=== PATIENT | male | born 1985 | race Caucasian/White ===

== ENCOUNTER 2017-01-06 07:26 | Emergency (ER) | payer MEDICAID ==
[2017-01-06 07:41] VITALS: O2SAT 96
--- NOTE | 2017-01-06 08:11 | CPEKG ---
Heart Rate: 53 RR Interval: 1132 P-R Interval: 180 QRSD Interval: 90 QT Interval: 444 QTC Interval: 417 P [place]: 72 QRS [place]: 69 T Wave [place]: 45 EKG Severity - NORMAL ECG - EKG Impression: SINUS RHYTHM Electronically Signed By: Nikita Adler 08-Jan-2017 06:07:23
[2017-01-06] MEDS ORDERED: KETOROLAC 30 MG/1 ML SDV IVP ONE (08:34)
--- NOTE | 2017-01-06 08:36 | EDPHY ---
HPI/HX/ROS/PE/MDM Narrative: CHIEF COMPLAINT: Left side trunk pain HPI: The patient is a 31 y/o male who complains of diffuse left-sided trunk pain onset several weeks ago. The pain is intermittent but has been increasing in severity since it first began. The pain initially lasted for 1 hour, but the duration of pain has also been increasing. This morning around 01:00, 7.5 hours ago, the pain became more severe. He states it is an aching pain with an intermittent stabbing pain. He has had difficulty taking a deep breath because of the pain, nausea, as well as inability to pass a bowel movement. Denies cough , vomiting, fever, diarrhea, constipation, painful urination. REVIEW OF SYSTEMS: Aside from elements discussed in the HPI, a comprehensive 10-point review of systems was reviewed and is negative. PMH: Cyclic vomiting SOCIAL HISTORY: Lives in [place] Single Nonsmoker PHYSICAL EXAM: General:Patient is alert, in no acute distress. ENT:Eyes are normal to inspection. ENT inspection normal. Neck: Normal inspection. Full range of motion. Respiratory:No respiratory distress. Breath sounds normal bilaterally. Cardiovascular: Regular rate and rhythm. Strong peripheral pulses. Normal cap refill. Abdomen: Mild LLQ tenderness to palpitation. There are no peritoneal signs. There are normal bowel sounds. Back: Normal to inspection. No tenderness to palpation. Skin: Normal color. No rash. Warm and dry. Extremities: Normal appearance. Full range of motion. Neuro: Oriented x3. Normal motor function. Normal sensory function. Portions of this note were transcribed by an ED scribe. I personally performed the history, physical exam, and medical decision making; and confirm the accuracy of the information in the transcribed note. ED Course: The patient is a 31 y/o male who presents with mild LLQ tenderness. EKG was ordered and interpreted by myself. Please see [employer] system for official reading. 0854: Lab results show an elevated Lipase, plan on abdominal Ultrasound. 1010: Ultrasound negative. 1020: Patient sitting in bed reading. Comfortable. I offered patient further workup to include CTAP, CTchest, but he declines. He believes his symptoms are due to panic attack and would like to go home. MDM: This patient presents with left sided chest and abdominal pain of unknown etiology. I considered kidney stone, splenic infarct, PE, shingles among other diagnoses, but there is no evidence for these on our workup. The patient does have a mildly elevated lipase, but he has a normal ultrasound and his pain is not epigastric. I offered further workup including CTAP but patient declines this test for now and wants to go home. - Data Points Imaging Results: Imaging Impressions Abdomen Ultrasound 01/06/17 08:54 Impression: 1. There are some tiny (3 mm range) gallbladder polyps present, however there is no evidence of cholelithiasis, cholecystitis, or bile duct dilatation. 2. Suboptimal assessment of the distal pancreatic body and tail secondary to overlying bowel gas in this patient with an elevated lipase. If there is further clinical concern, contrast-enhanced CT imaging could be considered. Findings were discussed with Charles Montalvo MD at 10:04, on 01/06/2017. Imaging: Discussed imaging studies w/ scallop binder Radiologist, I viewed and interpreted images myself Laboratory Results: Laboratory Results 01/06/17 08:17 01/06/17 08:17 01/06/17 01/06/17 01/06/17 08:55 08:17 08:17 WBC RBC Hgb Hct MCV MCH MCHC RDW Plt Count MPV Neut % (Auto) Lymph % (Auto) [place] % (Auto) Eos % (Auto) Baso % (Auto) Nucleat RBC Rel Count Absolute Neuts (auto) Absolute Lymphs (auto) Absolute Monos (auto) Absolute Eos (auto) Absolute Basos (auto) Absolute Nucleated RBC Immature Gran % Immature Gran # D-Dimer < 0.27 ug/mLFEU ug/mLFEU (0.00-0.50) Sodium 142 mEq/L mEq/L (134-144) Potassium 4.2 mEq/L mEq/L (3.5-5.2) Chloride 107 mEq/L mEq/L (97-110) Carbon Dioxide 22 mEq/l mEq/l (22-31) Anion Gap 13 mEq/L mEq/L (8-16) BUN 20 mg/dL mg/dL (7-23) Creatinine 0.9 mg/dL mg/dL (0.7-1.3) Estimated GFR > 60 Glucose 92 mg/dL mg/dL (70-100) Calcium 9.6 mg/dL mg/dL (8.5-10.4) Troponin I < 0.012 ng/mL ng/mL (0.000-0.034) Lipase 635 IU/L H IU/L (23-300) Urine Color PALE YELLOW Urine Appearance CLEAR Urine pH 6.0 (5.0-7.5) Ur Specific [place] 1.006 (1.002-1.030) Urine Protein NEGATIVE (NEGATIVE) Urine Ketones NEGATIVE (NEGATIVE) Urine Blood NEGATIVE (NEGATIVE) Urine Nitrate NEGATIVE (NEGATIVE) Urine Bilirubin NEGATIVE (NEGATIVE) Urine Urobilinogen NEGATIVE EU EU (0.2-1.0) Ur Leukocyte Esterase NEGATIVE (NEGATIVE) Urine Glucose NEGATIVE (NEGATIVE) 01/06/17 08:17 WBC 4.91 10^3/uL 10^3/uL (3.80-9.50) RBC 4.81 10^6/uL 10^6/uL (4.40-6.38) Hgb 14.9 g/dL g/dL (13.7-17.5) Hct 41.6 % % (40.0-51.0) MCV 86.5 fL fL (81.5-99.8) MCH 31.0 pg pg (27.9-34.1) MCHC 35.8 g/dL g/dL (32.4-36.7) RDW 11.9 % % (11.5-15.2) Plt Count 198 10^3/uL 10^3/uL (150-400) MPV 10.6 fL fL (8.7-11.7) Neut % (Auto) 59.5 % % (39.3-74.2) Lymph % (Auto) 32.6 % % (15.0-45.0) [place] % (Auto) 6.1 % % (4.5-13.0) Eos % (Auto) 1.2 % % (0.6-7.6) Baso % (Auto) 0.4 % % (0.3-1.7) Nucleat RBC Rel Count 0.0 % % (0.0-0.2) Absolute Neuts (auto) 2.92 10^3/uL 10^3/uL (1.70-6.50) Absolute Lymphs (auto) 1.60 10^3/uL 10^3/uL (1.00-3.00) Absolute Monos (auto) 0.30 10^3/uL 10^3/uL (0.30-0.80) Absolute Eos (auto) 0.06 10^3/uL 10^3/uL (0.03-0.40) Absolute Basos (auto) 0.02 10^3/uL 10^3/uL (0.02-0.10) Absolute Nucleated RBC 0.00 10^3/uL 10^3/uL (0-0.01) Immature Gran % 0.2 % % (0.0-1.1) Immature Gran # 0.01 10^3/uL 10^3/uL (0.00-0.10) D-Dimer Sodium Potassium Chloride Carbon Dioxide Anion Gap BUN Creatinine Estimated GFR Glucose Calcium Troponin I Lipase Urine Color Urine Appearance Urine pH Ur Specific [place] Urine Protein Urine Ketones Urine Blood Urine Nitrate Urine Bilirubin Urine Urobilinogen Ur Leukocyte Esterase Urine Glucose Medications Given: Discontinued Medications Ketorolac Tromethamine (Toradol) 30 mg IVP EDNOW ONE Stop: 01/06/17 08:35 Last Admin: 01/06/17 08:44 Dose: 30 mg General Time Seen by Provider: 01/06/17 08:08 Initial Vital Signs: Initial Vital Signs Temperature (C) 36.6 C 01/06/17 07:38 Heart Rate 64 01/06/17 07:38 Respiratory Rate 16 01/06/17 07:38 Blood Pressure 128/60 H 01/06/17 07:38 O2 Sat (%) 96 01/06/17 07:38 O2 Delivery Mode Room Air Allergies/Adverse Reactions: amoxicillin [Amoxicillin] Allergy (Mild, Verified 01/06/17 07:42) Hives haloperidol [From Haldol] Allergy (Verified 01/06/17 07:42) Home Medications: Medication Instructions Recorded Valium 05/11/15 Clonidine 01/06/17 Departure - Departure Disposition: Home, Routine, Self-Care Clinical Impression: Abdominal pain Condition: Good Instructions: Abdominal Pain (ED) Additional Instructions: Follow-up with your primary doctor within 72 hours. Return to the Emergency Department for worsening pain, fever, severe vomiting, change in character or severity of pain or other worsening of condition. Referrals: CHARLES FUCHS [Other] - As per Instructions Maged Willams MD [[facility] Primary Care Provider] - As per Instructions Report Scribed for: Charles Montalvo Report Scribed by: Maite Tellez Date of Report: 01/06/17 Time of Report: 08:28
[2017-01-06 08:40] LABS: % IMMATURE GRANULYOCYTES 0.2 % (0.0-1.1); ABSOLUTE IMMATURE GRANULOCYTES 0.01 10^3/uL (0.00-0.10); ADD DIFF? NO; ADD MORPH? NO; ADD SCAN? NO; ATYPICAL LYMPHOCYTE FLAG 0 (0-99); FRAGMENT RBC FLAG 0 (0-99); HEMATOCRIT 41.6 % (40.0-51.0); HEMOGLOBIN 14.9 g/dL (13.7-17.5); LEFT SHIFT FLG 0 (0-99); LIPEMIA HEMOLYSIS FLAG 90 (0-99); MEAN CELL HEMOGLOBIN CONCENTR. 35.8 g/dL (32.4-36.7); MEAN CELL VOLUME 86.5 fL (81.5-99.8); MEAN PLATELET VOLUME 10.6 fL (8.7-11.7); PLATELET CLUMPS FLAG 0 (0-99); PLATELET COUNT 198 10^3/uL (150-400); RED BLOOD CELL COUNT 4.81 10^6/uL (4.40-6.38); RED CELL DISTRIBUTION WIDTH 11.9 % (11.5-15.2)
[2017-01-06 08:46] LABS: ANION GAP 13 mEq/L (8-16); CALCIUM 9.6 mg/dL (8.5-10.4); CARBON DIOXIDE 22 mEq/l (22-31); CHLORIDE 107 mEq/L (97-110); CREATININE 0.9 mg/dL (0.7-1.3); GLOMERULAR FILTRATION RATE > 60; GLUCOSE 92 mg/dL (70-100); POTASSIUM 4.2 mEq/L (3.5-5.2); SODIUM 142 mEq/L (134-144)
[2017-01-06 08:58] LABS: TROPONIN I < 0.012 ng/mL (0.000-0.034)
[2017-01-06 09:08] LABS: COLOR PALE YELLOW; LEUKOCYTE ESTERASE,URINE NEGATIVE (NEGATIVE); NITRITE,URINE NEGATIVE (NEGATIVE)
[2017-01-06 10:37] VITALS: BP 116/78; PULSE 59; RESP 18; TEMP 97.5
== END 2017-01-06 10:37 | disposition home or self-care (01) ==
DX: R10.32 Left lower quadrant pain (principal)
CPT/HCPCS: 96374; J1885

== ENCOUNTER 2017-01-09 23:09 | Inpatient (IN) | payer MEDICAID ==
--- NOTE | 2017-01-09 23:43 | EDPHY ---
H & P Stated Complaint: LLQ abd pain and emesis seen wed for same symptoms HPI/ROS: HPI CHIEF COMPLAINT: Left-sided abdominal pain HISTORY OF PRESENT ILLNESS: This patient very pleasant 31-year-old male he does have significant past medical history for cyclic vomiting syndrome as well as anxiety, presents emergency room with left upper quadrant pain. Patient reports that on Wednesday he was seen here for the same complaint head evaluation thought it was more anxiety related went home. States and Wednesday he did fine today around 5 hours ago he resume with this left upper quadrant abdominal pain he describes as "pinching "he denies any chest pain or shortness of breath. Denies fever. Denies urinary symptoms. States the pain does wrap around to his left side. Located left upper quadrant. No pleuritic pain. No shortness of breath or chest pain. No fever. Did have 2 episodes of nonbilious nonbloody vomiting. Past Medical History: Cyclic vomiting syndrome, anxiety and panic attack Past Surgical History: No recent surgery however history of appendicitis appendectomy, left shoulder surgery, right wrist surgery Social History: Smokes marijuana occasionally, denies daily use of drugs alcohol or tobacco. Student. Family History: Noncontributory ROS REVIEW OF SYSTEMS: A comprehensive 10 point review of systems is otherwise negative aside from elements mentioned in the history of present illness. Exam Constitutional appears nontoxictriage nursing summary reviewed, vital signs reviewed, awake/alert. Eyes normal conjunctivae and sclera, EOMI, PERRLA. HENT normal inspection, atraumatic, moist mucus membranes, no epistaxis, neck supple/ no meningismus, no raccoon eyes. Respiratory clear to auscultation bilaterally, normal breath sounds, no respiratory distress, no wheezing. Cardiovascular rate normal, regular rhythm, no murmur, no edema, distal pulses normal. Gastrointestinal soft, mild tenderness palpation left upper quadrant , no rebound, no guarding, normal bowel sounds, no distension, no pulsatile mass. Genitourinary no CVA tenderness. Musculoskeletal no midline vertebral tenderness, full range of motion, no calf swelling, no tenderness of extremities, no meningismus, good pulses, neurovascularly intact. Skin pink, warm, & dry, no rash, skin atraumatic. Neurologic awake, alert and oriented x 3, AAOx3, moves all 4 extremities equally, motor intact, sensory intact, CN II-XII intact, normal cerebellar, normal vision, normal speech. Psychiatric normal mood/affect. Heme/Lymph/Immune no lymphadenopathy. Differential diagnosis includes but is not limited to and in no particular order : Bowel obstruction, appendicitis, gallbladder disease, diverticulitis, colitis , enteritis, perforated viscus, gastritis, GERD, esophagitis, urinary tract infection, pyelonephritis, kidney stones Medical Decision Making: Plan for this patient IV establishment with IV fluid bolus, 0.5 mg IV Dilaudid for pain control, CT scan abdomen pelvis with IV contrast to help delineate abdominal pain acute left upper quadrant, check abdominal blood work including LFTs, lipase. Re-evaluate. Re-evaluation: CT scan of the abdomen pelvis with contrast. The results of the study are this shows pericholecystic fluid with gallstones present.. The study was read by Dr. Garcia I viewed the images myself on the PACS system. 0205AM: CT scan results show gallstones and pericholecystic fluid around the gallbladder. Clinically on exam the patient does not have any right upper quadrant pain he is complaining of left upper quadrant pain. He denies any fever. However given how gallbladder looks on CT scan I will consult surgery for evaluation of this. He has had multiple episodes of nausea vomiting. LFTs and bilirubin are normal. 0213AM: A consult General surgery Dr. Gus Pal. He will come and evaluate the patient. 0408AM: Patient resting. He has agreed for admission the hospital. We did touch base with [place] as he has [place] med[place]. Dr. Pal has evaluated the patient. Plan will be for admission for abdominal pain, gallstones, ? Acute cholecystitis 0448AM: Spoke with Dr. Pal, he would like the patient admitted to the hospitalist service. Distally the patient has been given Valium here. He was office Valium for 3 days. Very anxious. Possibly going through benzo withdrawal as well. I have updated the patient he agrees to be admitted to the hospital for abdominal pain and possible acute cholecystitis. He is allergic to penicillin. He gets a rash with throat swelling. I have asked Dr. Fisher to admit the patient. At this time the patient is hemodynamically stable afebrile. Not vomiting. Mild abdominal pain no peritoneal signs. Agrees for admission. He is calm after Valium. Source: Patient - Personal History Current Tetanus/Diphtheria Vaccine: No Current Tetanus Diphtheria and Acellular Pertussis (TDAP): No - Medical/Surgical History Hx Asthma: No Hx Chronic Respiratory Disease: No Hx Diabetes: No Hx Cardiac Disease: No Hx Renal Disease: No Hx Cirrhosis: No Hx Alcoholism: No Hx HIV/AIDS: No Hx Splenectomy or Spleen Trauma: No Other PMH: concussions. anxiety. "n/v due to stress", LEFT SHOULDER SURGERY, DAMAGE TO SPINE - Social History Smoking Status: Never smoked Constitutional: Initial Vital Signs Temperature (C) 36.4 C 01/09/17 23:13 Heart Rate 83 01/09/17 23:13 Respiratory Rate 16 01/09/17 23:13 Blood Pressure 119/71 01/09/17 23:13 O2 Sat (%) 97 01/09/17 23:13 O2 Delivery Mode Room Air Allergies/Adverse Reactions: amoxicillin [Amoxicillin] Allergy (Mild, Verified 01/09/17 23:15) Hives haloperidol [From Haldol] Allergy (Verified 01/09/17 23:15) Home Medications: Medication Instructions Recorded Diazepam [Valium 5 MG (*)] 5 mg PO BID PRN 01/10/17 Herbals/Supplements -Info Only 1 ea PO DAILY 01/10/17 clonIDINE [Catapres (*)] 0.1 mg PO HS 01/10/17 oxyCODONE/APAP 5/325 [Percocet 1 - 2 tab PO Q4HRS PRN #20 tab 01/10/17 5/325 (*)] Medical Decision Making - Data Points Laboratory Results: Laboratory Results 01/09/17 23:45 01/09/17 23:45 Medications Given: Discontinued Medications Bupivacaine HCl (Sensorcaine 0.5% Vial) Confirm Administered Dose 30 ml .ROUTE .STK-MED ONE Stop: 01/10/17 09:05 Last Admin: 01/10/17 10:52 Dose: 30 ml Diazepam (Valium) 5 mg PO EDNOW ONE Stop: 01/10/17 03:34 Last Admin: 01/10/17 03:54 Dose: 5 mg Fentanyl (Sublimaze) 25 - 100 mcg IVP Q5M PRN PRN Reason: PACU, IMMEDIATE Pain control Stop: 01/10/17 11:28 Last Admin: 01/10/17 11:31 Dose: 50 mcg Hydromorphone HCl (Dilaudid) 0.5 mg IVP EDNOW ONE Stop: 01/09/17 23:50 Last Admin: 01/10/17 00:11 Dose: 0.5 mg Hydromorphone HCl (Dilaudid) 0.5 mg IVP EDNOW ONE Stop: 01/10/17 00:55 Last Admin: 01/10/17 01:02 Dose: 0.5 mg Hydromorphone HCl (Dilaudid) 1 mg IVP EDNOW ONE Stop: 01/10/17 02:07 Last Admin: 01/10/17 02:15 Dose: 1 mg Hydromorphone HCl (Dilaudid) 0.4 mg IVP Q4HRS PRN PRN Reason: Pain, Severe Unable to Take PO Stop: 01/20/17 05:39 Last Admin: 01/10/17 05:57 Dose: 0.4 mg Hydromorphone HCl (Dilaudid) 0.4 mg IVP Q2HRS PRN PRN Reason: Pain, Severe Unable to Take PO Stop: 01/20/17 05:39 Last Admin: 01/10/17 08:57 Dose: 0.4 mg Hydromorphone HCl (Dilaudid) 0.1 - 0.4 mg IVP Q10M PRN PRN Reason: PACU, PAIN Stop: 01/10/17 11:28 Last Admin: 01/10/17 12:26 Dose: 0.2 mg Sodium Chloride (Ns) 1,000 mls @ 0 mls/hr IV EDNOW ONE; Wide Open PRN Reason: Protocol Stop: 01/09/17 23:46 Last Admin: 01/10/17 00:11 Dose: 1,000 mls Ertapenem 1 gm/ Sodium (Chloride) 100 mls @ 200 mls/hr IV EDNOW ONE PRN Reason: Protocol Stop: 01/10/17 04:45 Last Admin: 01/10/17 04:41 Dose: Not Given Sodium Chloride (Ns) 1,000 mls @ 125 mls/hr IV CONT DELANEY Stop: 07/09/17 05:44 Last Admin: 01/10/17 06:01 Dose: 1,000 mls Ertapenem 1 gm/ Sodium (Chloride) 100 mls @ 200 mls/hr IV DAILY DELANEY PRN Reason: Protocol Stop: 02/09/17 08:59 Last Admin: 01/10/17 08:06 Dose: 100 mls Lorazepam (Ativan Injection) 0.5 mg IV ONCE ONE Stop: 01/10/17 12:16 Last Admin: 01/10/17 12:18 Dose: 0.5 mg Oxycodone/Acetaminophen (Percocet 5/325) 1 - 2 tab PO Q4HRS PRN PRN Reason: Pain, Severe Able to Take PO Stop: 01/20/17 11:08 Last Admin: 01/10/17 19:16 Dose: 2 tab Departure - Departure Disposition: [facility] Inpatient Acute Clinical Impression: Cholecystitis Abdominal pain Qualifiers: Abdominal location: epigastric Qualified Code(s): R10.13 - Epigastric pain Gallstone Qualifiers: Cholecystitis presence: with cholecystitis Cholecystitis acuity: acute Biliary obstruction: without biliary obstruction Qualified Code(s): K80.00 - Calculus of gallbladder with acute cholecystitis without obstruction Condition: Good
[2017-01-09] MEDS ORDERED: NS 1,000 ML IV ONE (23:45)
[2017-01-09] MEDS ORDERED: HYDROmorphONE/DILAUDID 1 MG/ML INJ IVP ONE (23:49)
[2017-01-10] MEDS ORDERED: IOPAMIDOL (ISOVUE-300) 100 ML BTL ONE (00:09)
[2017-01-10 00:18] LABS: % IMMATURE GRANULYOCYTES 0.3 % (0.0-1.1); ABSOLUTE IMMATURE GRANULOCYTES 0.03 10^3/uL (0.00-0.10); ADD DIFF? NO; ADD MORPH? NO; ADD SCAN? NO; ATYPICAL LYMPHOCYTE FLAG 0 (0-99); FRAGMENT RBC FLAG 0 (0-99); HEMATOCRIT 38.7 % (40.0-51.0); HEMOGLOBIN 14.2 g/dL (13.7-17.5); LEFT SHIFT FLG 0 (0-99); LIPEMIA HEMOLYSIS FLAG 90 (0-99); MEAN CELL HEMOGLOBIN CONCENTR. 36.7 g/dL (32.4-36.7); MEAN CELL VOLUME 84.5 fL (81.5-99.8); MEAN PLATELET VOLUME 10.7 fL (8.7-11.7); PLATELET CLUMPS FLAG 20 (0-99); PLATELET COUNT 195 10^3/uL (150-400); RED BLOOD CELL COUNT 4.58 10^6/uL (4.40-6.38); RED CELL DISTRIBUTION WIDTH 11.9 % (11.5-15.2)
[2017-01-10] MEDS ORDERED: HYDROmorphONE/DILAUDID 1 MG/ML INJ IVP ONE ×2 (00:54→02:06)
[2017-01-10 00:58] LABS: ALANINE AMINOTRANSFERASE 33 IU/L (21-72); ALBUMIN 4.4 g/dL (3.5-5.0); ALKALINE PHOSPHATASE 35 IU/L (38-126); ANION GAP 15 mEq/L (8-16); ASPARTATE AMINOTRANSFERASE 21 IU/L (17-59); BILIRUBIN,TOTAL 0.8 mg/dL (0.1-1.4); BILIRUBIN-CONJUGATED 0.2 mg/dL (0.0-0.5); BILIRUBIN-UNCONJUGATED 0.6 mg/dL (0.0-1.1); CALCIUM 10.1 mg/dL (8.5-10.4); CARBON DIOXIDE 20 mEq/l (22-31); CHLORIDE 104 mEq/L (97-110); CREATININE 1.1 mg/dL (0.7-1.3); GLOMERULAR FILTRATION RATE > 60; GLUCOSE 88 mg/dL (70-100); POTASSIUM 3.7 mEq/L (3.5-5.2); SODIUM 139 mEq/L (134-144); TOTAL PROTEIN 6.9 g/dL (6.3-8.2)
--- NOTE | 2017-01-10 03:14 | PDCONSULT ---
Literacy Education Professor Note: CC: Abd pain HPI 31 y/o male with 3 day history of LUQ pain, N/V. He was seen in the ED on Wednesday and had a mildly elevated lipase (635). An ultrasound showed a few small gallbladder polyps and he was discharged home. He returns tonight with worsening pain and has vomited twice. He denies fever, jaundice. CT this evening shows several 2-3 mm calcified gallstones, with one appearing to be impacted in the neck with associated pericholecystic fluid. His pancreas appears normal and his lipase/wbc are normal as are his liver enzymes. He is requesting Valium for anxiety. PMH: surgery: appendectomy, left shoulder surgery x 2 all: amoxicillin, haldol no tobacco, uses marijuana Etoh: SH: student/lives in [place] FH: [place] ROS: denies fever, chills, jaundice reports mild constipation PE: T 36.4 BP 138/69 P 69 R 20 Anxious young man in NAD HEENT: no scleral icterus, no adenopathy Lungs: CVS: Abd: soft, +BS, mild tenderness RUQ to deep palpation, no HSM, no LUQ tenderness , no hernia CT reviewed: shows Ca++ gallstones with one 2-3 mm stone impacted in the infundibulum/no CBD dilatation/pancreas unremarkable surgical clips from appendectomy IMP: mild cholecystitis, secondary to cholelithiasis and cystic duct obstruction recent LUQ pain and mild elevation of lipase worrisome for choledocholithiasis REC: I recommended laparoscopic cholecystectomy. He is reluctant to proceed. I informed him that he could have a second opinion if he would like. I spent 60 minutes in direct consultation greater than 50% of that time in educating the patient about the pathophysiology of the hepatobiliary system. Jessie Pal MD, FACS
[2017-01-10] MEDS ORDERED: DIAZEPAM 5 MG TAB PO ONE (03:33)
[2017-01-10] MEDS ORDERED: ERTAPENEM 1 GM in NS 100 ML IV ONE (04:16)
[2017-01-10] MEDS ORDERED: ONDANSETRON 4 MG/2 ML VIAL IVP PRN ×2 (05:39→10:28)
[2017-01-10] MEDS ORDERED: ACETAMINOPHEN 325 MG TAB PO PRN (05:39)
[2017-01-10] MEDS ORDERED: ONDANSETRON DISINTEGRATING 4 MG TAB PO PRN (05:39)
[2017-01-10] MEDS ORDERED: HYDROmorphONE/DILAUDID 1 MG/ML INJ IVP PRN ×2 (05:40→08:15)
[2017-01-10] MEDS ORDERED: NS 1,000 ML IV SCH (05:45)
--- NOTE | 2017-01-10 07:15 | GHP ---
[f rep st] HISTORY AND PHYSICAL DATE OF ADMISSION: 01/10/2017 CHIEF COMPLAINT: Acute cholecystitis. HISTORY OF PRESENT ILLNESS: A 31-year-old male, history of anxiety, cyclic vomiting syndrome, who presented to the ER today with left upper quadrant pain. He was here in the emergency room on Wednesday for the same complaint, thought it was more anxiety related, thus went home. Ultrasound then showed tiny gallbladder polyps, but no evidence of stones. Pain initially started a week and a half ago in his left upper quadrant, felt sharp. He was doing well and Wednesday and then after dinner last night developed increased pain. He had nausea with 2 episodes of vomiting. Denies fevers, chills, or sweats. No diarrhea. REVIEW OF SYSTEMS: I completed a 10-point review of systems, negative except as noted in HPI. PAST MEDICAL HISTORY: Cyclic vomiting syndrome, anxiety and panic attack. PAST SURGICAL HISTORY: Appendectomy, left shoulder surgery, right wrist surgery x2. SOCIAL HISTORY: [employer] student. Smokes marijuana occasionally. Occasional alcohol. No tobacco. FAMILY HISTORY: No gallstones or hyperlipidemia. MEDICATIONS: Valium p.r.n., clonidine. ALLERGIES: Amoxicillin, Haldol. PHYSICAL EXAMINATION: VITAL SIGNS: Temperature 36.6, blood pressure 127/71, heart rate in the 70s, respirations 15, 94% on room air. GENERAL: The patient is lying in bed, no acute distress. HEENT: PERRLA. EOMI. Oropharynx clear. CV: Regular rate and rhythm. No murmurs, gallops, rubs. LUNGS: Clear to auscultation bilaterally. ABDOMEN: Soft, nondistended, minimal left upper quadrant tenderness. Positive bowel sounds. : No Ivan. MUSCULOSKELETAL: 5/5 upper and lower extremity strength. NEURO: 2 through 12 intact. PSYCH: Alert and oriented x3. LABORATORY DATA: WBC is 8, hemoglobin 14, hematocrit 38, platelets are 195. Sodium 139, potassium 3.7, chloride 104, carbon dioxide 20, creatinine 1.1, glucose 88, calcium 10.1, total bilirubin 0.8, AST 21, ALT 33, alkaline phosphatase 35, total protein 6.9, lipase 67 (previously 635 on 01/06) IMAGING: CT abdomen: Acute cholecystitis and cholelithiasis with pericholecystic fluid. ASSESSMENT/PLAN: 1. Acute cholecystitis: Dr. Pal evaluated patient and recommended surgery. He is made n.p.o., IV fluids. Treat with ertapenem, with penicillin allergy. 2. Acute abdominal pain: Due to #1 p.r.n. IV Dilaudid. 3. Anxiety: Continue home medications. 4. Marijuana use. Counseled on cessation. 5. Diet: N.p.o., IV fluids. 6. Deep venous thrombosis prophylaxis, low risk. DISPOSITION: Patient warrants inpatient admission given acute cholecystitis requiring surgical intervention. /[id number]/MODL MTDD
[2017-01-10 07:35] LABS: HEMATOCRIT 36.7 % (40.0-51.0); HEMOGLOBIN 13.3 g/dL (13.7-17.5); MEAN CELL HEMOGLOBIN CONCENTR. 36.2 g/dL (32.4-36.7); MEAN CELL VOLUME 85.5 fL (81.5-99.8); RED BLOOD CELL COUNT 4.29 10^6/uL (4.40-6.38)
--- NOTE | 2017-01-10 08:17 | SOAPPROG ---
SOAP Progress Note Assessment/Plan: Assessment: 31 yo with cholelithiasis and pericholecystic fluid on CT We will proceed with laparoscopic cholecystectomy. The risks and benefits including but not limited to stroke, heart attack, , blood clots, infection , bleeding, damage to surrounding structures such as the bowel or common bile duct were discussed. He had his questions answered to his satisfaction. He signed the informed consent. He is on Invanz. S: Pain improved from last night. O: General: Pleasant, well-nourished and well-groomed man HENT: Normocephalic, no gross hearing deficits, mucous membranes moist, pupils equal and round, no scleral icterus Lungs: Clear to auscultation bilaterally, No increased work of breathing Cardiac: Regular rate, no peripheral edema Abdomen: Bowel sounds present, soft and nontender. Skin: Warm and dry. MSK: Normal gait and normal nails Psych: Mood and affect normal Neuro: Grossly intact Plan: 01/10/17 08:16 Objective: Vital Signs Temp Pulse Resp BP Pulse Ox 36.8 C 76 18 109/65 96 01/10/17 07:49 01/10/17 07:49 01/10/17 07:49 01/10/17 07:49 01/10/17 07:49 Laboratory Results 01/10/17 07:27 01/09/17 01/10/17 01/11/17 05:59 05:59 05:59 Intake Total 1000 Balance 1000 ICD10 Worksheet Patient Problems: Problems Problem Status Onset Abdominal pain Acute Cholecystitis Acute Gallstone Acute
[2017-01-10] MEDS ORDERED: ERTAPENEM 1 GM in NS 100 ML IV SCH (09:00)
[2017-01-10] MEDS ORDERED: BUPIVACAINE 0.5% 30 ML SDV ONE (09:04)
--- NOTE | 2017-01-10 10:00 | ASMTCMCOM ---
CM Note CM Note Notes: 31 yo male admitted for abdominal pain, cholecystitis. Patient has a Hx of anxiety, panic attacks. Lives with parents. Case Management doesn't anticipate that patient will have any discharge needs. Date Signed: 01/10/2017 10:00 AM Electronically Signed By:Philomena Grimes LCSW
[2017-01-10] MEDS ORDERED: PROPOFOL 200 MG/20 ML VIAL ONE (10:07)
[2017-01-10] MEDS ORDERED: fentaNYL 100 MCG/2 ML INJ ONE ×3 (10:07→11:19)
[2017-01-10] MEDS ORDERED: DEXAMETHASONE 4 MG/ML VIAL ONE (10:09)
[2017-01-10] MEDS ORDERED: ONDANSETRON 4 MG/2 ML VIAL ONE ×2 (10:09→11:17)
[2017-01-10] MEDS ORDERED: LIDOCAINE 2% 5 ML SDV ONE (10:09)
[2017-01-10] MEDS ORDERED: ROCURONIUM 50 MG/5 ML VIAL ONE (10:09)
[2017-01-10] MEDS ORDERED: RANITIDINE 50 MG/2 ML VIAL ONE (10:09)
[2017-01-10] MEDS ORDERED: OXYCODONE/APAP 5/325 TAB PO PRN (10:28)
[2017-01-10] MEDS ORDERED: NALOXONE HCL 0.4 MG/ML INJ IVP PRN (10:28)
[2017-01-10] MEDS ORDERED: ALBUTEROL 3 ML DEYVIAL IH PRN (10:28)
--- NOTE | 2017-01-10 10:30 | PDANEPAE ---
ANE History of Present Illness Ozzy Headley MIAN Past Medical History - Pulmonary History Hx Oxygen in Use at Home: No Hx Sleep Apnea: No Sleep Apnea Screening Result - Last Documented: Negative - Endocrine History Hx Diabetes: No - Chronic Pain History Chronic Pain: Yes ANE Review of Systems Review of Systems: ANE Patient History - Allergies Allergies/Adverse Reactions: amoxicillin [Amoxicillin] Allergy (Mild, Verified 01/09/17 23:15) Hives haloperidol [From Haldol] Allergy (Verified 01/09/17 23:15) - Home Medications Home Medications: Valium 05/11/15 [Last Taken Unknown] Clonidine 01/06/17 [Last Taken Unknown] - NPO status NPO Since - Liquids (Date): 01/09/17 NPO Since - Liquids (Time): 11:00 NPO Since - Solids (Date): 01/09/17 NPO Since - Solids (Time): 11:00 - Smoking Hx Smoking Status: Never smoked MIAN Labs/Vital Signs - Labs Result Diagrams: 01/10/17 07:27 01/09/17 23:45 - Vital Signs Blood Pressure: 109/65 Heart Rate: 76 Respiratory Rate: 18 O2 Sat (%): 96 Height: 175.26 cm Weight: 74.843 kg ANE Physical Exam - Airway Neck exam: FROM Mallampati Score: Class 2 Mouth exam: normal dental/mouth exam - Pulmonary Pulmonary: clear to auscultation - Cardiovascular Cardiovascular: regular rate and rhythym - ASA Status ASA Status: I, E ANE Anesthesia Plan Anesthesia Plan: general endotracheal anesthesia
[2017-01-10] MEDS ORDERED: SUGAMMADEX SODIUM 200 MG/2 ML VIAL IVP ONE (11:00)
--- NOTE | 2017-01-10 11:11 | POSTOPPROG ---
Post Op Note Date of Operation: 01/10/17 Surgeon: Ena Yates Anesthesiologist: pb Anesthesia: GET(General Endotracheal) Pre-op Diagnosis: acute calculous cholecystitis Post-op Diagnosis: same Indication: 31 yo with cholecystitis Procedure: lap arvin Findings: inflamed gb with stones Inf/Abcess present in the surg proc area at time of surgery?: No Depth: Superfical (Skin SQ) EBL: Minimal Specimen(s): gallbladder
--- NOTE | 2017-01-10 11:16 | POSTANESTH ---
Post Anesthetic Evaluation Cardiovascular Status: Normal, Stable Respiratory Status: Normal, Stable Level of Consciousness/Mental Status: Can Participate in Eval, Alert and Oriented Pain Control: Adequate, Prn Tx Ordered Nausea/Vomiting Control: Inadeq, Add Tx Reqired Complications Possibly Related to Anesthesia: None Noted
[2017-01-10] MEDS ORDERED: HYDROmorphONE/DILAUDID 1 MG/ML INJ ONE ×2 (11:19→11:49)
[2017-01-10] MEDS: fentaNYL 100 MCG/2 ML INJ IVP PRN ×2 (11:23→11:31)
[2017-01-10] MEDS: HYDROmorphONE/DILAUDID 1 MG/ML INJ IVP PRN ×6 (11:24→12:26)
[2017-01-10] MEDS ORDERED: LORazepam 2 MG/ML INJ ONE (11:50)
[2017-01-10] MEDS ORDERED: LORazepam 2 MG/ML INJ IV ONE (12:15)
[2017-01-10] MEDS: OXYCODONE/APAP 5/325 TAB PO PRN ×3 (15:23→19:16)
[2017-01-10 15:39] VITALS: BP 135/68; PULSE 66; RESP 14; TEMP 97.9; O2SAT 96
--- NOTE | 2017-01-10 18:51 | GOP ---
[f rep st] OPERATIVE REPORT DATE OF OPERATION: 01/10/2017 SURGEON: Ena Yates MD ANESTHESIA: General ANESTHESIOLOGIST: Mason Lopes DO PREOPERATIVE DIAGNOSIS: Acute calculous cholecystitis. POSTOPERATIVE DIAGNOSIS: Acute calculous cholecystitis. PROCEDURE PERFORMED: Laparoscopic cholecystectomy. FINDINGS: Inflammation by the gallbladder and stones milked from the cystic duct. SPECIMENS: Gallbladder. ESTIMATED BLOOD LOSS: 15 cc. INDICATIONS: The patient is a 31-year-old man who presented with abdominal pain. CT scan showed per i-cholecystic fluid and stones. DESCRIPTION OF PROCEDURE: The patient was brought into the operating room, placed supine on the tabl e, and general anesthesia was administered. His abdomen was prepped and draped in the usual sterile fashion. I infiltrated all sites with 0.5% Marcaine prior to making incisions; I used a total of 30 cc throughout the case. I made an incision at his umbilicus. I elevated it and inserted the Veress needle. It passed the hanging drop test. His abdomen insufflated easily to a pressure of 15 mmHg. I placed a 5 mm trocar with a camera at this site. Under direct vision, I placed a 10 mm subxiphoid trocar and two 5 mm trocars along the right costal margin. I lifted his gallbladder cephalad and lat erally to expose the triangle of Calot. There was inflammation in this area. I performed blunt diss ection so that I could skeletonize the cystic artery and cystic duct, so that they were the only 2 st ructures directly entering the gallbladder. I milked some stones up from the cystic duct. I singly clipped it toward the gallbladder, doubly clipped it distally, and transected each with scissors. Th e clip was just around the cystic duct, and so I also placed an Endoloop around it. I removed the ga llbladder from the gallbladder fossa with electrocautery. I placed it in an EndoCatch bag. It was r etrieved via the 10 mm trocar. I inspected the abdomen for hemostasis, which was achieved. Suction irrigation was performed. I removed the ports under direct vision and allowed the abdomen to desuffl ate. The fascia at the 10 mm trocar site was closed with 0 Vicryl, skin closed with 4-0 Monocryl, an d Dermabond applied. He was awakened in the operating room, extubated, and transferred to PACU in st able condition. /[id number]/MODL
[2017-01-11] MEDS ORDERED: ERTAPENEM 1 GM in NS 100 ML IV SCH (07:30)
--- NOTE | 2017-01-11 10:45 | ASDISCHSUM ---
Discharge Information Plan Status:Home with No Needs Medically Cleared to Leave: Discharge Date:01/10/2017 07:40 PM CM D/C Disposition:Home, Routine, Self-Care ADT D/C Disposition:Home, Routine, Self-Care Projected Discharge Date:01/10/2017 07:40 PM Transportation at D/C: Discharge Delay Reason: Follow-Up Date:01/10/2017 07:40 PM Discharge Slot: Final Diagnosis: Placement Information Patient Contact Information Contact Name:KANE Relationship:Father Address:[address] City:[place] Alternate Phone: State/Zip Code:[place] [address] Email: Financial Information Financial Class: Primary Plan Desc:MEDICAID [facility] Primary Plan Number:[id number] Secondary Plan Desc: Secondary Plan Number: Assessment Information [facility] CM Progress Note CM Note CM Note Notes: 31 yo male admitted for abdominal pain, cholecystitis. Patient has a Hx of anxiety, panic attacks. Lives with parents. Case Management doesn't anticipate that patient will have any discharge needs. Date Signed: 01/10/2017 10:00 AM Electronically Signed By:Philomena Grimes LCSW Intervention Information
== END 2017-01-10 19:40 | disposition home or self-care (01) | DRG 418 ==
LOC: F3N 01-10 05:01
PROVIDERS: ADMIT Internal Medicine; ATTEND Internal Medicine
PROC: 0FT44ZZ Resection of Gallbladder, Percutaneous Endoscopic Approach (ICD-10-PCS; principal; 2017-01-10 09:00)
DX: K80.36 Calculus of bile duct with acute and chronic cholangitis without obstruction (principal); F41.9 Anxiety disorder, unspecified; F12.90 Cannabis use, unspecified, uncomplicated
CPT/HCPCS: 96374; J1100; J1170; J1335; J2060; J2405; J2704; J2780; J3010; Q9967

== ENCOUNTER 2017-02-26 11:46 | Emergency (ER) | payer MEDICAID ==
[2017-02-26] MEDS ORDERED: METOCLOPRAMIDE 10 MG/2 ML VIAL IVP ONE ×2 (12:32)
[2017-02-26] MEDS ORDERED: KETAMINE 100 MG/10 ML SYR IVP ONE ×2 (12:33)
[2017-02-26 12:35] LABS: PLATELET COUNT 217 10^3/uL (150-400)
--- NOTE | 2017-02-26 12:37 | EDPHY ---
H & P Time Seen by Provider: 02/26/17 12:22 HPI/ROS: CHIEF COMPLAINT: Right upper quadrant pain, vomiting HISTORY OF PRESENT ILLNESS: 31-year-old male status post cholecystectomy presents with right upper quadrant pain and vomiting. 6 weeks ago, he had a cholecystectomy for cholelithiasis. He has been doing well until last evening. He ate salmon for dinner and then had gradually increasing onset of upper abdominal discomfort, associated with vomiting. The abdominal discomfort is severe and radiates to the left scapular area. Associated with multiple episodes of vomiting. The onset of symptoms was similar to prior episodes of cyclic vomiting, but pain is different from his usual cyclic vomiting syndrome symptoms. REVIEW OF SYSTEMS: Constitutional: No fever, no chills Eyes: No visual changes ENT: No sore throat Respiratory: No cough, no shortness of breath Cardiac: No chest pain Genitourinary: No hematuria, no dysuria Musculoskeletal: No leg pain or swelling Skin: No rash Neurological: No headache, no weakness Psychiatric: No depression Past Medical/Surgical History: Cholecystectomy Appendectomy Social History: No recent alcohol, no drug use Smoking Status: Never smoked Physical Exam: General Appearance: Alert, pleasant, pale appearing Eyes: Pupils equal and round, no conjunctival pallor or injection ENT, Mouth: Mucous membranes moist Neck: Normal inspection Respiratory: Lungs are clear to auscultation Cardiovascular: Regular rate and rhythm Gastrointestinal: abdomen is soft, slight right upper quadrant tenderness, no peritoneal signs Back: No tenderness in the left periscapular area Neurological: A&O, nonfocal, normal gait Skin: Warm and dry, no rash Extremities: Nontender, no pedal edema Psychiatric: Mood and affect normal Constitutional: Initial Vital Signs Temperature (C) 36.6 C 02/26/17 11:54 Heart Rate 66 02/26/17 11:54 Respiratory Rate 19 02/26/17 11:54 Blood Pressure 118/72 02/26/17 11:54 O2 Sat (%) 100 02/26/17 11:54 O2 Delivery Mode Room Air Allergies/Adverse Reactions: amoxicillin [Amoxicillin] Allergy (Mild, Verified 02/26/17 11:53) Hives haloperidol [From Haldol] Allergy (Verified 02/26/17 11:53) Home Medications: Medication Instructions Recorded Diazepam [Valium 5 MG (*)] 5 mg PO BID PRN 01/10/17 clonIDINE [Catapres (*)] 0.1 mg PO HS 01/10/17 Ondansetron Odt [Zofran Odt 4 mg 4 mg PO Q4 PRN #6 tab 02/26/17 (*)] Medical Decision Making ED Course/Re-evaluation: This patient presents with abdominal pain and vomiting. His abdominal exam is benign and I do not suspect a postoperative abscess or other complication. I will treat his symptoms and observe him in the emergency department. Reglan, Benadryl and ketamine IV given. IV normal saline 2 L. 2:00 p.m.-feels much better. Abdominal pain has resolved. He continues to have slight nausea, but has not vomited. Abdominal exam is benign. If he is able to tolerate oral fluids, I will discharge him home. He will follow up with his primary care physician in the office. 2:45 p.m.-tolerating oral fluids well. No recurrent nausea or abdominal pain. Abdominal exam remains benign. Abdominal pain precautions given. Differential Diagnosis: Differential diagnosis includes though it is not limited to appendicitis, cholecystitis, diverticulitis, pyelonephritis, bowel perforation, small bowel obstruction. - Data Points Laboratory Results: Laboratory Results 02/26/17 12:05 02/26/17 12:05 02/26/17 02/26/17 12:05 12:05 WBC 6.99 10^3/uL 10^3/uL (3.80-9.50) RBC 5.16 10^6/uL 10^6/uL (4.40-6.38) Hgb 16.2 g/dL g/dL (13.7-17.5) Hct 43.5 % % (40.0-51.0) MCV 84.3 fL fL (81.5-99.8) MCH 31.4 pg pg (27.9-34.1) MCHC 37.2 g/dL H g/dL (32.4-36.7) RDW 13.0 % % (11.5-15.2) Plt Count 217 10^3/uL 10^3/uL (150-400) MPV 10.9 fL fL (8.7-11.7) Neut % (Auto) 77.4 % H % (39.3-74.2) Lymph % (Auto) 17.5 % % (15.0-45.0) [place] % (Auto) 4.6 % % (4.5-13.0) Eos % (Auto) 0.1 % L % (0.6-7.6) Baso % (Auto) 0.3 % % (0.3-1.7) Nucleat RBC Rel Count 0.0 % % (0.0-0.2) Absolute Neuts (auto) 5.41 10^3/uL 10^3/uL (1.70-6.50) Absolute Lymphs (auto) 1.22 10^3/uL 10^3/uL (1.00-3.00) Absolute Monos (auto) 0.32 10^3/uL 10^3/uL (0.30-0.80) Absolute Eos (auto) 0.01 10^3/uL L 10^3/uL (0.03-0.40) Absolute Basos (auto) 0.02 10^3/uL 10^3/uL (0.02-0.10) Absolute Nucleated RBC 0.00 10^3/uL 10^3/uL (0-0.01) Immature Gran % 0.1 % % (0.0-1.1) Immature Gran # 0.01 10^3/uL 10^3/uL (0.00-0.10) Sodium 140 mEq/L mEq/L (134-144) Potassium 4.0 mEq/L mEq/L (3.5-5.2) Chloride 105 mEq/L mEq/L (97-110) Carbon Dioxide 17 mEq/l L mEq/l (22-31) Anion Gap 18 mEq/L H mEq/L (8-16) BUN 14 mg/dL mg/dL (7-23) Creatinine 0.9 mg/dL mg/dL (0.7-1.3) Estimated GFR > 60 Glucose 94 mg/dL mg/dL (70-100) Calcium 10.5 mg/dL H mg/dL (8.5-10.4) Total Bilirubin 1.2 mg/dL mg/dL (0.1-1.4) Conjugated Bilirubin 0.3 mg/dL mg/dL (0.0-0.5) Unconjugated Bilirubin 0.9 mg/dL mg/dL (0.0-1.1) AST 21 IU/L IU/L (17-59) ALT 37 IU/L IU/L (21-72) Alkaline Phosphatase 50 IU/L IU/L (38-126) Total Protein 7.5 g/dL g/dL (6.3-8.2) Albumin 5.3 g/dL H g/dL (3.5-5.0) Lipase 82 IU/L IU/L (23-300) Medications Given: Discontinued Medications Diphenhydramine HCl (Benadryl Injection) 25 mg IVP EDNOW ONE Stop: 02/26/17 12:33 Last Admin: 02/26/17 12:46 Dose: 25 mg Sodium Chloride (Ns) 1,000 mls @ 0 mls/hr IV ONCE ONE; Wide Open PRN Reason: Protocol Stop: 02/26/17 12:43 Last Admin: 02/26/17 12:47 Dose: 1,000 mls Ketamine HCl (Ketamine) 13.6 mg 0.2 mg/kg (13.6 mg) IVP EDNOW ONE Stop: 02/26/17 12:34 Last Admin: 02/26/17 12:45 Dose: 13.6 mg Metoclopramide HCl (Reglan Injection) 10 mg IVP EDNOW ONE Stop: 02/26/17 12:33 Last Admin: 02/26/17 12:47 Dose: 10 mg Departure - Departure Disposition: Home, Routine, Self-Care Clinical Impression: Abdominal pain Qualifiers: Abdominal location: generalized Qualified Code(s): R10.84 - Generalized abdominal pain Condition: Good Instructions: Acute Abdominal Pain (ED) Additional Instructions: Clear liquids for 24 hours. Sometimes we are unable to diagnose an obvious cause of abdominal pain in the Emergency Department. Based upon our evaluation today, we see no obvious explanation for your pain. Because more serious conditions can be difficult to diagnose early in the course of their presentation, we ask that you return to the Emergency Department in 8-12 hours for a recheck if you are still having pain. This is necessary to exclude the development of a more serious condition such as appendicitis or other intra-abdominal emergency. In the event your pain markedly increases before that time or you develop intractable vomiting or fever return to the Emergency Department immediately. Referrals: Dez Perez MD [Medical Doctor] - 1 day, if not improved Prescriptions: Ondansetron Odt [Zofran Odt 4 mg (*)] 4 mg PO Q4 PRN #6 tab PRN Reason: Nausea
[2017-02-26] MEDS ORDERED: NS 1,000 ML IV ONE ×2 (12:42)
[2017-02-26 14:43] VITALS: O2SAT 95
[2017-02-26 14:59] VITALS: BP 105/64; PULSE 70; RESP 14; TEMP 97.7
== END 2017-02-26 14:58 | disposition home or self-care (01) ==
PROC: 3E0337Z Introduction of Electrolytic and Water Balance Substance into Peripheral Vein, Percutaneous Approach (ICD-10-PCS; principal; 2017-02-26)
DX: R10.84 Generalized abdominal pain (principal); E86.9 Volume depletion, unspecified; Z90.49 Acquired absence of other specified parts of digestive tract
CPT/HCPCS: 96374; J1200; J2765

== ENCOUNTER 2018-02-22 10:23 | Emergency (ER) | payer MEDICAID ==
--- NOTE | 2018-02-22 10:53 | EDPHY ---
H & P Stated Complaint: R fourth finger poss nail inf Time Seen by Provider: 02/22/18 10:52 HPI/ROS: HPI: This is a 32-year-old male who presents with Chief Complaint: R fourth finger poss nail inf Location: Right ring finger Quality: Possible infection Duration: Acute Signs and Symptoms: No bleeding, no radiation, no numbness, no weakness, no tingling, no incontinence, no decreased range of motion, + swelling, + pain, no fever Timing: Acute, constant Severity: [id number] Context: Patient is right-hand dominant, presents with right ring finger redness, swelling, warmth over the last 24 hr. Denies any trauma, injury. Went swimming approximately 1 week ago. Denies biting his nails. Denies ingrown nail. Tetanus booster given 2011. Modifying Factors: None Comment: ROS: A comprehensive 10 system review of systems is otherwise negative aside from elements mentioned in the history of present illness. MEDICAL/SURGICAL/SOCIAL HISTORY: Medical history: Concussion Surgical history: Appendectomy, cholecystectomy Social history: Employed. Nonsmoker. Denies drug use. CONSTITUTIONAL: Nontoxic-appearing adult white male, playing on computer while lying on the ER stretcher, awake and alert, no obvious distress HEENT: Atraumatic and normocephalic. NECK: supple EXTREMITIES: 2/2 pulses, strength 5/5, right ring finger lateral and inferior nail bed shows fluctuance, erythema, pustular discharge with palpation. DIP/PIP/ MCP flexion/extension intact with good light touch sensation. no deformities, no clubbing, no cyanosis or edema. NEUROLOGICAL: no focal neuro deficits. GCS 15. Light touch sensation intact. SKIN: Warm and dry, no erythema. no rash. Good capillary refill. Source: Patient Exam Limitations: No limitations - Personal History Tetanus Vaccine Date: 2011 - Medical/Surgical History Hx Asthma: No Hx Chronic Respiratory Disease: No Hx Diabetes: No Hx Cardiac Disease: No Hx Renal Disease: No Hx Cirrhosis: No Hx Alcoholism: No Hx HIV/AIDS: No Hx Splenectomy or Spleen Trauma: No Other PMH: concussions. anxiety. APPY/CHOLY - Social History Smoking Status: Never smoked Constitutional: Initial Vital Signs Temperature (C) 36.6 C 02/22/18 10:31 Heart Rate 78 02/22/18 10:31 Respiratory Rate 16 10/30/18 10:31 Blood Pressure 113/65 10/30/18 10:31 O2 Sat (%) 97 02/22/18 10:31 O2 Delivery Mode Room Air Allergies/Adverse Reactions: amoxicillin [Amoxicillin] Allergy (Mild, Verified 02/26/17 11:53) Hives haloperidol [From Haldol] Allergy (Verified 02/26/17 11:53) Home Medications: Medication Instructions Recorded Diazepam 02/22/18 Sulfamethox/Tmp 800/160 mg 1 tab PO BID #14 tab 02/22/18 [Bactrim Ds] Trazodone HCl 02/22/18 Medical Decision Making Procedures: Procedure: Abscess drainage. Local anesthesia provided with 3 mL of 1% lidocaine without epinephrine. The patient's abscess was located on the right index finger. I obtained verbal consent from the patient to drain the abscess who was informed about the possibility of bleeding and pain. The abscess was incised with 18 gauge needle and a 2 mL amount of purulent drainage was expressed. I irrigated the wound and placed bacitracin and tube gauze. The patient tolerated the procedure well. The procedure was performed by myself. ED Course/Re-evaluation: Vital signs reviewed and stable upon arrival. No systemic signs. Local anesthesia provided, Fluctuance I&D; copiously irrigated; bacitracin and tube gauze applied Bactrim given in the emergency room and prescription for same due to penicillin allergy Verbal and written wound care instructions provided No signs of neurovascular compromise/tenting of skin/compartment syndrome/ extremities and joints examined above and below area of concern and are neurovascularly intact. This patient was seen under the supervision of my secondary supervising physician. I evaluated care for this patient independently. Discussed this patient with Dr. Choi. Differential Diagnosis: Differential diagnosis includes but is not limited to felon, paronychia, tenosynovitis, foreign body, ingrown nail. Departure - Departure Disposition: Home, Routine, Self-Care Clinical Impression: Paronychia of right ring finger Condition: Good Instructions: Paronychia (ED) Additional Instructions: Keep the dressing dry and in place for 48 hours. After 48 hours, you may remove the dressing; wash the site daily with mild soap and water; then pat dry apply topical antibiotic ointment and clean sterile dressing until fully healed. Do not soak in a bathtub or dish water until fully healed. Take Tylenol 650 mg every 4 hours and/or Ibuprofen 600 mg every 8 hours with food as needed for pain. Take antibiotic as directed. Do not skip a dose. Return to the ER immediately if you experience redness, red streaks, have fevers /chills, flu like symptoms, limited range of motion, or any other symptoms that concern you. Referrals: TRE [facility] [Other] - 5-7 days, if not improved Prescriptions: Sulfamethox/Tmp 800/160 mg [Bactrim Ds] 1 tab PO BID #14 tab
[2018-02-22] MEDS ORDERED: SULFAMETHOX/TMP 800/160 MG 1 TAB PO ONE (11:25)
[2018-02-22 11:53] VITALS: BP 122/80
== END 2018-02-22 11:49 | disposition home or self-care (01) ==
PROC: 0H9FXZZ Drainage of Right Hand Skin, External Approach (ICD-10-PCS; principal; 2018-02-22)
DX: L03.011 Cellulitis of right finger (principal); Z88.0 Allergy status to penicillin